=== PATIENT | male | born 1975 | race Caucasian/White ===

== ENCOUNTER 2016-10-23 12:10 | Emergency (ER) | payer BC ==
[~2016-10-23] VITALS: Ht 172.7 cm; Wt 131.0 kg
[~2016-10-23 12:10] MED LIST: CEPH500C PO; ESCI10TA49 PO; LSNP20T PO; PRED20TA PO
[2016-10-23] MEDS ORDERED: TETANUS & DIPHTHERIA TOXOIDS (Td) 0.5 ML (DECAVAC) VIAL IM ONE (12:25)
[2016-10-23] MEDS ORDERED: MTF500TCR PO (12:28)
[2016-10-23] MEDS ORDERED: TEST75GE3 TD (12:28)
[2016-10-23] MEDS ORDERED: TETANUS, DIPTHERIA, PERTUSSIS (ADACELL) VACCINE 0.5 ML VIAL IM ONE (12:35)
--- NOTE | 2016-10-23 12:55 | Diagnostic Imaging Report ---
INDICATION: Foot pain. FINDINGS: Three views of the right foot show no fracture, dislocation, or other acute abnormalities. IMPRESSION: Negative right foot. Dictated by: Dictated on workstation # [id number]
[2016-10-23 13:59] VITALS: BP 173/87
== END 2016-10-23 13:27 | disposition home or self-care (01) ==
LOC: ED 12:12
DX: S90.31XA Contusion of right foot, initial encounter (principal); S90.811A Abrasion, right foot, initial encounter; W20.8XXA Other cause of strike by thrown, projected or falling object, initial encounter; Y93.89 Activity, other specified; Y92.009 Unspecified place in unspecified non-institutional (private) residence as the place of occurrence of the external cause
CPT/HCPCS: 90471; 90715; 99282; 99283